=== PATIENT | female | born 1995 | race African-American/Black ===

== ENCOUNTER 2024-02-05 08:00 | Emergency (ER) | payer MEDICAID, OTHER ==
[~2024-02-05] VITALS: Ht 172.7 cm; Wt 109.0 kg
[2024-02-05 08:05] VITALS: O2SAT 97
[2024-02-05] MEDS: PREDNISONE 20MG TABLET PO ONE (09:09)
[2024-02-05 09:15] VITALS: PULSE 89; RESP 20
[2024-02-05] MEDS: IPRATROPIUM/ALBUTEROL 0.5-3(2.5)MG/3ML NEB HHN ONE (09:15)
[2024-02-05] MEDS ORDERED: P50 MT (10:12)
[2024-02-05] MEDS ORDERED: ALBU6.7H15 INH (10:12)
[2024-02-05] MEDS ORDERED: TOPUD MT (10:12)
[2024-02-05] MEDS ORDERED: IBUP-1525 MT (10:12)
[2024-02-05] MEDS ORDERED: DEXT30SU17 MT (10:12)
[2024-02-05] MEDS ORDERED: AZIT250T12 MT (10:12)
[2024-02-05 10:22] VITALS: BP 117/77; PULSE 90; RESP 20; TEMP 98.3
== END 2024-02-05 10:25 | disposition home or self-care (01) ==
LOC: ER 08:00
DX: R06.02 Shortness of breath (principal); R05.9 Cough, unspecified; R50.9 Fever, unspecified
CPT/HCPCS: 94640; 99283; J7512; Z7610 ×3